=== PATIENT | female | born 1990 | race Caucasian/White ===

== ENCOUNTER 2021-07-12 19:30 | Emergency (ER) | payer OTHER ==
[2021-07-12 19:51] VITALS: BP 117/66; PULSE 76; TEMP 98.3; BMI 31.7
[2021-07-13 18:08] LABS: SARS-CoV-2 NAA Not Detected (Not Detected)
== END 2021-07-12 20:13 | disposition home or self-care (01) ==
LOC: FER 19:30
DX: Z11.52 Encounter for screening for COVID-19 (principal)
CPT/HCPCS: 99283-25; C9803; U0003; U0005

== ENCOUNTER 2023-10-14 06:34 | Emergency (ER) | payer OTHER ==
[2023-10-14 06:44] VITALS: BMI 32.5
[2023-10-14] MEDS ORDERED: FAMOTIDINE 20 MG/50 ML IVPB 20 MG/50 ML MG IVPB ONE (07:50)
[2023-10-14] MEDS ORDERED: ACETAMINOPHEN INJECTION 100 ML IVPB ONE (07:50)
[2023-10-14] MEDS ORDERED: ONDANSETRON 4 MG/2 ML VIAL ONE (08:00)
[2023-10-14] MEDS: LACTATED RINGERS SOLUTION 1000 ML INFUS.BAG IV ONE (08:35)
[2023-10-14] MEDS: ACETAMINOPHEN 1000 MG/100 ML BAG IVPB ONE (08:35)
[2023-10-14] MEDS: ONDANSETRON 4 MG/2 ML VIAL IVPUSH ONE (08:36)
[2023-10-14] MEDS: FAMOTIDINE 20 MG/50 ML IVPB 20 MG/50 ML MG IVPB ONE (08:36)
[2023-10-14 08:41] LABS: BASO % 0.8 % (0-2.0); EOS % 4.6 % (0-4.5); HEMATOCRIT 38.1 % (32.4-45.2); HEMOGLOBIN 12.5 GM/dL (10.7-15.3); LYMPH % 27.2 % (8-40); MCH 33.1 pg (25.7-33.7); MCHC 32.9 g/dl (32.0-36.0); MEAN CELL VOLUME 100.6 fl (80-96); MEAN PLT VOLUME 7.7 fl (7.5-11.1); MONO % 5.8 % (3.8-10.2); NEUT % 61.6 % (42.8-82.8); PLATELET COUNT 303 10^3/uL (134-434); RBC 3.79 M/mm3 (3.60-5.2); WHITE BLOOD COUNT 11.4 K/mm3 (4.0-10.0)
[2023-10-14 08:42] LABS: URINE APPEARANCE CLEAR; URINE BILIRUBIN NEGATIVE (NEGATIVE); URINE COLOR YELLOW; URINE GLUCOSE (UA) NEGATIVE (NEGATIVE); URINE KETONE NEGATIVE (NEGATIVE); URINE LEUK ESTERASE NEGATIVE (NEGATIVE); URINE NITRITE NEGATIVE (NEGATIVE); URINE PROTEIN TRACE (NEGATIVE); URINE UROBILINOGEN 0.2 mg/dL (0.2-1.0)
[2023-10-14 08:48] LABS: INR 0.92 (0.83-1.09); PROTHROMBIN TIME (PATIENT) 10.7 SEC (9.7-13.0)
[2023-10-14 08:50] LABS: POTASSIUM 4.1 mmol/L (3.5-5.1)
[2023-10-14 08:51] LABS: ACTIVATED PTT 27.6 SECONDS (25.2-36.5)
[2023-10-14 08:53] LABS: ALBUMIN 3.5 g/dl (3.4-5.0); BLOOD UREA NITROGEN 16.4 mg/dL (7-18)
[2023-10-14 08:56] LABS: CREATININE 0.8 mg/dL (0.55-1.3)
[2023-10-14 08:58] LABS: BILIRUBIN,TOTAL 0.2 mg/dL (0.2-1); TOT PROT 7.2 g/dl (6.4-8.2)
[2023-10-14] MEDS ORDERED: SUCRALFATE 1 GM TABLET (FP) ONE (11:22)
[2023-10-14] MEDS ORDERED: MAG HYDROX/AL HYDROX/SIMETH 30 ML UNIT-DOSE CUP ONE (11:22)
[2023-10-14] MEDS ORDERED: PANTOPRAZOLE SODIUM 40 MG VIAL ONE (11:23)
[2023-10-14] MEDS: MAG HYDROX/AL HYDROX/SIMETH 30 ML UNIT-DOSE CUP PO ONE (11:28)
[2023-10-14] MEDS: PANTOPRAZOLE SODIUM 40 MG VIAL IVPUSH ONE (11:28)
[2023-10-14] MEDS: SUCRALFATE 1 GM/10 ML UNIT DOSE CUPS PO ONE (11:28)
[2023-10-14 13:07] VITALS: BP 119/84; PULSE 82; RESP 18; TEMP 98.1
== END 2023-10-14 13:07 | disposition home or self-care (01) ==
LOC: JER 06:34
PROC: 3E033GC Introduction of Other Therapeutic Substance into Peripheral Vein, Percutaneous Approach (ICD-10-PCS; principal; 2023-10-14)
PROC: 3E033GC Introduction of Other Therapeutic Substance into Peripheral Vein, Percutaneous Approach (ICD-10-PCS; 2023-10-14)
PROC: 3E033GC Introduction of Other Therapeutic Substance into Peripheral Vein, Percutaneous Approach (ICD-10-PCS; 2023-10-14)
PROC: 3E033NZ Introduction of Analgesics, Hypnotics, Sedatives into Peripheral Vein, Percutaneous Approach (ICD-10-PCS; 2023-10-14)
DX: R10.13 Epigastric pain (principal); R11.2 Nausea with vomiting, unspecified; Z20.822 Contact with and (suspected) exposure to COVID-19
CPT/HCPCS: 0241U-QW; 36415; 71045-TC-FY; 76705-TC; 80053; 81003; 83690; 84484; 84702; 84703; 85025; 85610; 85730; 87086; 93005; 93010; 99285-25; J0131

== ENCOUNTER 2023-12-05 04:13 | Day surgery (SDC) | payer OTHER ==
[2023-11-29 14:12] VITALS: BMI 30.9
[2023-12-05] MEDS ORDERED: INDOCYANINE GREEN 25 MG/10 ML VIAL IVPUSH ONE (07:06)
[2023-12-05] MEDS ORDERED: BUPIVACAINE HCL/PF 0.25% (2.5MG/ML) 10 ML VIAL ONE (07:06)
[2023-12-05] MEDS ORDERED: HEPARIN NA (PORCINE) 5,000 UNITS/ML 1ML VIAL ONE (07:06)
[2023-12-05] MEDS ORDERED: cefOXitin SODIUM 2 GM VIAL (RESTRICTED TO ID) IVPB ONE (07:06)
[2023-12-05] MEDS ORDERED: FENTANYL CITRATE/PF 50 MCG/ML VIAL ONE (07:49)
[2023-12-05] MEDS ORDERED: MIDAZOLAM HCL 2 MG/2 ML SINGLE DOSE VIAL ONE ×2 (07:50→08:05)
[2023-12-05] MEDS ORDERED: PROPOFOL 20 ML ONE (07:52)
[2023-12-05] MEDS: cefOXitin SODIUM 2 GM VIAL (RESTRICTED TO ID) IVPB ONE (08:15)
[2023-12-05] MEDS ORDERED: DEXAMETHASONE SOD PHOSPHATE 4 MG/1 ML VIAL ONE (08:22)
[2023-12-05] MEDS ORDERED: ceFAZolin SODIUM 1 GM VIAL ONE (08:22)
[2023-12-05] MEDS ORDERED: ONDANSETRON 4 MG/2 ML VIAL ONE (08:22)
[2023-12-05] MEDS ORDERED: LIDOCAINE HCL/PF 2% SDV 5ML VIAL ONE (08:22)
[2023-12-05] MEDS ORDERED: GLYCOPYRROLATE 0.2 MG/1 ML VIAL ONE (08:22)
[2023-12-05] MEDS: BUPIVACAINE HCL/PF 0.25% (2.5MG/ML) 10 ML VIAL IJ ONE (08:30)
[2023-12-05] MEDS ORDERED: NEOSTIGMINE METHYLSULFATE 0.5 MG/1 ML - 10 ML MDV ONE (09:27)
[2023-12-05] MEDS: ACETAMINOPHEN 1000 MG/100 ML BAG IVPB ONE (10:15)
[2023-12-05] MEDS: FENTANYL CITRATE/PF 50 MCG/ML VIAL ONE (10:20)
[2023-12-05] MEDS ORDERED: ONDANSETRON 4 MG/2 ML VIAL IVPUSH PRN (10:43)
[2023-12-05] MEDS ORDERED: LACTATED RINGERS SOLUTION 1,000 ML IV SCH (10:45)
[2023-12-05] MEDS: oxyCODONE HCL 5 MG TABLET PO PRN (12:17)
[2023-12-05] MEDS ORDERED: oxyCODONE HCL 5 MG TABLET ONE (12:20)
[2023-12-05 13:15] VITALS: RESP 20; TEMP 97.8
[2023-12-05 13:17] VITALS: BP 110/64; PULSE 76
== END 2023-12-05 13:00 | disposition home or self-care (01) ==
LOC: JASU-SURG 04:13
PROVIDERS: ATTEND Surgery
PROC: 8E0W4CZ Robotic Assisted Procedure of Trunk Region, Percutaneous Endoscopic Approach (ICD-10-PCS; 2023-12-05)
PROC: 0FT44ZZ Resection of Gallbladder, Percutaneous Endoscopic Approach (ICD-10-PCS; principal; 2023-12-05 08:00)
DX: K80.20 Calculus of gallbladder without cholecystitis without obstruction (principal)
CPT/HCPCS: 47562; S2900; 81025; 88304-TC; 94760; J0131; J1644